=== PATIENT | female | born 1965 | race Caucasian/White ===

== ENCOUNTER 2022-11-14 17:15 | Emergency (ER) | payer OTHER ==
[2022-11-14] MEDS ORDERED: Ketorolac 30 MG/ML SDV IM ONE (17:41)
[2022-11-14] MEDS ORDERED: Orphenadrine 60 MG/2 ML Inj IM ONE (17:41)
[2022-11-14] MEDS ORDERED: Take Home: Acetaminophen/oxyCODONE 325-5 MG, 5 Tab Pack PO ONE (18:41)
[2022-11-14] MEDS ORDERED: Cyclobenzaprine 10 MG Tab PO ONE (18:42)
== END 2022-11-14 18:58 | disposition home or self-care (01) ==
LOC: VM.ED 17:15
DX: M54.16 Radiculopathy, lumbar region (principal); E78.00 Pure hypercholesterolemia, unspecified; E11.9 Type 2 diabetes mellitus without complications; F17.210 Nicotine dependence, cigarettes, uncomplicated; Z88.5 Allergy status to narcotic agent; Z88.8 Allergy status to other drugs, medicaments and biological substances; Z79.4 Long term (current) use of insulin; Z79.899 Other long term (current) drug therapy
CPT/HCPCS: 72100; 72170; 81001; 96372; 99284; A9270; J1885; J2360